=== PATIENT | male | born 1955 | race African-American/Black ===

== ENCOUNTER 2017-03-20 16:55 | Outpatient (CLI) | payer MEDICARE, OTHER ==
[2017-03-20 17:45] LABS: #Eosinphils 0.2 thou/uL (0.0-0.7); #Lymphocytes 0.9 thou/uL (1.20-3.40); #Monocytes 0.3 thou/uL (0.11-0.59); #Neutrophils 3.3 thou/uL (1.40-6.50); %Basophils 0.3 % (0.0-1.0); %Eosinophils 3.4 % (0.0-10.0); %Lymphocytes 19.4 % (21.0-51.0); %Monocytes 6.3 % (0.0-10.0); %Neutrophils 70.6 % (42.0-75.0); Mean Corpuscular HGB CONC 30.8 g/dL (32.0-36.0); Mean Corpuscular Hemoglobin 29.1 pg (27.0-31.0); Mean Corpuscular Volume 94.5 fl (80.0-94.0); Mean Platelet Volume 7.2 fL (7.4-10.4); Platelet Count 264 thou/uL (130-400); RBC Distribution Width 12.1 % (11.5-14.5); Red Blood Cell (RBC) Count 3.44 mill/uL (4.70-6.10); White Blood Cell (WBC) Count 4.6 thou/uL (4.8-10.8)
[2017-03-20 18:09] LABS: Anion Gap 13 mmol/L (10-20); BUN (Urea Nitrogen) 12 mg/dL (8.4-25.7); Calc. Creatinine Clearance 0 mL/min (70-130); Calcium 9.5 mg/dL (7.8-10.44); Carbon Dioxide 25 mmol/L (22-29); Chloride 101 mmol/L (98-107); Estimated GFR-MDRD 80; Glucose 267 mg/dL (70-105); Potassium 3.6 mmol/L (3.5-5.1); Sodium 135 mmol/L (136-145)
--- NOTE | 2017-03-28 19:34 | EKG ---
Test Reason : Blood Pressure : / mmHG Vent. Rate : 083 BPM Atrial Rate : 083 BPM P-R Int : 218 ms QRS Dur : 080 ms QT Int : 382 ms P-R-T Axes : 030 002 -13 degrees QTc Int : 448 ms Poor data quality, interpretation may be adversely affected Sinus rhythm with 1st degree A-V block Anterior infarct (cited on or before 05-JUL-2011) T wave abnormality, consider inferior ischemia Abnormal ECG When compared with ECG of 05-NOV-2016 19:42, OK interval has increased Questionable change in initial forces of Anterior leads T wave inversion now evident in Inferior leads Confirmed by TARIK GAMBOA (2) on 03/28/2017 7:33:41 PM Referred By: JAYCOB Confirmed By:TARIK GAMBOA
== END 2017-03-20 16:56 | disposition home or self-care (01) ==
LOC: LABBT 16:55
PROVIDERS: ATTEND Surgery
DX: Z01.818 Encounter for other preprocedural examination (principal); M86.171 Other acute osteomyelitis, right ankle and foot
CPT/HCPCS: 80048; 85025; 93005; 93010

== ENCOUNTER 2017-03-21 09:39 | Day surgery (SDC) | payer MEDICARE, OTHER ==
[2017-03-20 16:53] VITALS: BMI 37.9
[2017-03-21] MEDS ORDERED: Ketorolac Tromethamine 30 MG/ML VIAL ONE (10:55)
[2017-03-21] MEDS ORDERED: CEFAZOLIN/Water 2 GM/20 ML SYRINGE ONE (10:55)
[2017-03-21] MEDS ORDERED: Fentanyl 100 MCG/2 ML VIAL ONE ×2 (11:11)
[2017-03-21] MEDS ORDERED: Bupivacaine 0.25% HCL 30 ML VIAL ONE (11:16)
[2017-03-21] MEDS ORDERED: Lidocaine 2% w/Epinephrine 1:200K 20 ML VIAL ONE (11:16)
[2017-03-21] MEDS ORDERED: Bacitracin Zinc Ointment 30 gm TUBE ONE (11:16)
--- NOTE | 2017-03-21 12:48 | PDOC.OP ---
Operative Note - Operative Note Operative Note: PROCEDURE: Debridement and closure of right second toe amputation site, right fourth toe transmetatarsal amputation and drainage of abscess DATE OF PROCEDURE: 03/21/2017 SURGEON: Mihir Oneill M.D. PREOPERATIVE DIAGNOSES: Stalled wound right second toe amputation, right fourth toe osteomyelitis with open joint POSTOPERATIVE DIAGNOSIS: Stalled wound right second toe amputation, right fourth toe osteomyelitis with open joint HISTORY: Mr. Rodriguez is a 61-year-old man who is status post right second toe amputation. This is mostly healed but the skin has not completely closed despite ongoing wound care. He recently developed an ulcer on his right fourth toe which has progressed and he now has an open joint and obvious osteomyelitis for which amputation was recommended PROCEDURE IN DETAIL: After informed consent was obtained and appropriate preoperative antibiotics administered the patient was taken to the operating on his list in supine position and general anesthesia was administered. He was prepped and draped in the standard sterile fashion and the skin and subcutaneous tissues at the right second toe amputation site curetted down to healthy bleeding tissue. The skin was reapproximated with interrupted horizontal mattress nylon sutures with good result. Attention was then turned to the fourth toe. A paddle-shaped incision was made around the base of the toe and carried down to the proximal phalanx which was transected. The patient was found to have an abscess extending onto the dorsum of his foot to the skin was opened and the abscess completely drained and debrided. Some necrotic tissue around the base of the proximal phalanx was appreciated and additional purulent fluid encountered so the amputation was carried down to the metatarsal level at which point the tissues appeared healthy and the bone appeared normal and not spongy. Cultures of the abscess were sent and bone cultures of the metatarsal head were sent as well. A VAC dressing was placed at the fourth toe amputation site by wound care and the patient was taken to recovery in good condition. Estimated blood loss was minimal. There were no complications. Specimens include fourth toe with cultures of abscess and bone cultures of metatarsal head.
[2017-03-21] MEDS ORDERED: PHENYLEPHRINE-NS 100 MCG/ML 10 ML SYRINGE ONE (13:44)
[2017-03-21] MEDS ORDERED: PROPOFOL 200 MG/20 ML VIAL ONE (13:44)
[2017-03-21] MEDS ORDERED: Ondansetron HCl/PF 4 MG/2 ML Vial ONE (13:44)
== END 2017-03-21 16:40 | disposition home or self-care (01) ==
LOC: SDC 09:39
PROVIDERS: ATTEND Surgery
PROC: 0Y6M0Z7 Detachment at Right Foot, Complete 4th Ray, Open Approach (ICD-10-PCS; principal; 2017-03-21)
PROC: 0JBQ0ZZ Excision of Right Foot Subcutaneous Tissue and Fascia, Open Approach (ICD-10-PCS; 2017-03-21)
DX: M86.171 Other acute osteomyelitis, right ankle and foot (principal); T81.31XA Disruption of external operation (surgical) wound, not elsewhere classified, initial encounter; E11.69 Type 2 diabetes mellitus with other specified complication; I12.0 Hypertensive chronic kidney disease with stage 5 chronic kidney disease or end stage renal disease; E11.22 Type 2 diabetes mellitus with diabetic chronic kidney disease; N18.6 End stage renal disease; Z94.0 Kidney transplant status; Z79.82 Long term (current) use of aspirin; Z79.899 Other long term (current) drug therapy; Z88.1 Allergy status to other antibiotic agents; Z88.2 Allergy status to sulfonamides; Z88.8 Allergy status to other drugs, medicaments and biological substances; Z98.41 Cataract extraction status, right eye; Z98.42 Cataract extraction status, left eye; Z96.1 Presence of intraocular lens; Z98.890 Other specified postprocedural states
CPT/HCPCS: 36416; 87070; 87077; 87186; 87205; 88305; 88311; J0131; J1885; J2405; J2704; J3010; S0020

== ENCOUNTER 2017-12-20 17:40 | Emergency (ER) | payer MEDICARE ==
[2017-12-20 18:54] LABS: #Eosinphils 0.2 thou/uL (0.0-0.7); #Lymphocytes 1.5 thou/uL (1.20-3.40); #Monocytes 0.5 thou/uL (0.11-0.59); #Neutrophils 2.7 thou/uL (1.40-6.50); %Basophils 0.5 % (0.0-1.0); %Eosinophils 3.9 % (0.0-10.0); %Lymphocytes 30.9 % (21.0-51.0); %Monocytes 9.5 % (0.0-10.0); %Neutrophils 55.1 % (42.0-75.0); Hemoglobin 8.4 g/dL (14.0-18.0); Mean Corpuscular HGB CONC 30.6 g/dL (32.0-36.0); Mean Corpuscular Hemoglobin 27.4 pg (27.0-31.0); Mean Corpuscular Volume 89.5 fL (78.0-98.0); Mean Platelet Volume 8.6 fL (7.4-10.4); Platelet Count 169 thou/uL (130-400); RBC Distribution Width 13.8 % (11.5-14.5); Red Blood Cell (RBC) Count 3.06 mill/uL (4.70-6.10); White Blood Cell (WBC) Count 4.9 thou/uL (4.8-10.8)
--- NOTE | 2017-12-21 05:12 | HP ---
HISTORY OF PRESENT ILLNESS: Mr. Alonso is a patient who has had a grzdf-wer-[id number] amputation performed Dr. Oneill a month ago. [facility] is seeing the patient, apparently the [facility] with Dr. 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 [place] are still in place. Dr. Rowe asked me to see him in the emergency room [facility] as I was still in the hospital. The patient was evaluated. He is afebrile. The wound BK is se parated to skin mid BKA immediately. Undermines medially. There is no evidence of cellulitis or inf ection. The fascia was intact. Thus, the medial nancy were removed and normal saline wet to dry d ressings applied. Note was written [facility] to wash this daily with soap and water in the bath or shower and apply normal saline wet to dry dressings. The patient will follow up with Dr. Oneill in 3 days.
== END 2017-12-20 20:41 | disposition home or self-care (01) ==
LOC: ERS 17:40
DX: M96.89 Other intraoperative and postprocedural complications and disorders of the musculoskeletal system (principal); E78.5 Hyperlipidemia, unspecified; E66.9 Obesity, unspecified; E11.40 Type 2 diabetes mellitus with diabetic neuropathy, unspecified; E03.9 Hypothyroidism, unspecified; I12.0 Hypertensive chronic kidney disease with stage 5 chronic kidney disease or end stage renal disease; N18.6 End stage renal disease; D50.9 Iron deficiency anemia, unspecified; Z79.899 Other long term (current) drug therapy; Z79.4 Long term (current) use of insulin
CPT/HCPCS: 36415; 85025; 99283

== ENCOUNTER 2018-01-16 11:21 | Emergency (ER) | payer MEDICARE ==
[2018-01-16 14:21] LABS: Bilirubin Negative (Negative); Blood, Urine Large (Negative); Clarity CLOUDY (Clear); Glucose, Urine (Dipstick) 500 mg/dL (Negative); Leukocyte Negative (Negative); Nitrite Negative (Negative); Protein, Urine (Dipstick) Trace mg/dL (Neg-Trace); Specific Gravity, Urine 1.018 (1.002-1.036); Urobilinogen 0.2 mg/dL (0.2-1.0)
[2018-01-16 14:26] LABS: Bacteria/HPF None Seen HPF (None Seen); Hyaline Casts/LPF 4-6 HYALINE CAST LPF (0-3 Hyaline); Pathc Cast-AUWi Flag 0.87 (0-2.49); Squamous Epithelial 0-3 HPF (0-3); WBC/HPF 0-3 HPF (0-3)
[2018-01-16 14:45] LABS: Crystals/HPF 1+ AMORPH URATES HPF (Negative); Transitional Epithelial 0-3 HPF (0-3)
[2018-01-16] MEDS ORDERED: Acetaminophen 500 MG TAB ONE (14:46)
[2018-01-16] MEDS ORDERED: Ketorolac Tromethamine 60 MG/2 ML VIAL ONE (14:46)
== END 2018-01-16 15:50 | disposition home or self-care (01) ==
LOC: ERS 11:21
DX: R31.9 Hematuria, unspecified (principal); M54.9 Dorsalgia, unspecified; I10 Essential (primary) hypertension; E78.5 Hyperlipidemia, unspecified; E11.9 Type 2 diabetes mellitus without complications; E11.40 Type 2 diabetes mellitus with diabetic neuropathy, unspecified; E66.9 Obesity, unspecified; I12.0 Hypertensive chronic kidney disease with stage 5 chronic kidney disease or end stage renal disease; N18.6 End stage renal disease; E11.22 Type 2 diabetes mellitus with diabetic chronic kidney disease; E03.9 Hypothyroidism, unspecified; Z79.899 Other long term (current) drug therapy; Z79.4 Long term (current) use of insulin
CPT/HCPCS: 51701; 81003; 81015; 87070; 87077; 87086; 87205; 96372; J1885